=== PATIENT | male | born 1940 | race Caucasian/White ===

== ENCOUNTER 2017-01-27 10:22 | Emergency (ER) | payer BC, MEDICARE ==
[~2017-01-27 10:22] MED LIST: ALTACE10 MG PO; ASPIR 8181 MG PO; ATROVENT INH S2.5 ML INH; COREG 25MG TAB25 MG PO; HYDROCHLOROTH12.5 M1 PO; LEVAQUIN500 MG PO; MEDROL DOSEPAK 24 MG PO; PLAVIX 75 MG TA75 MG PO; PROVENTIL HFA 61 INH INH; SINGULAIR10 MG PO; TEKTURNA150 MG PO; TESSALON PERLE100 MG PO; TIROSINT100 MCG PO; VENTOLIN/PROVE0.5 ML INH; VITAMIN D50000 UNIT PO; ZOCOR 40 MG TAB40 MG PO
[2017-01-27 11:21] LABS: HEMOGLOBIN 13.5 gm/dl (14.0-17.5); RED BLOOD COUNT 4.5 M/UL (4.20-5.50); WHITE BLOOD COUNT 9.6 K/UL (4.5-11.0)
[2017-01-27 11:44] LABS: BUN/CREATININE RATIO 14 (0-10)
== END 2017-01-27 15:15 | disposition home or self-care (01) ==
LOC: ER1 10:22
PROVIDERS: Emergency Medicine
DX: J44.1 Chronic obstructive pulmonary disease with (acute) exacerbation (principal); E78.5 Hyperlipidemia, unspecified; I10 Essential (primary) hypertension; D64.9 Anemia, unspecified; I25.10 Atherosclerotic heart disease of native coronary artery without angina pectoris; Z85.038 Personal history of other malignant neoplasm of large intestine
CPT/HCPCS: 36415; 36600; 71010; 80053; 82803; 83880; 84484; 85025; 85379; 87040; 93005; 94640; 94664; 96374; 96375; 99285; J0696; J2930; J7050

== ENCOUNTER 2017-04-19 12:30 | Inpatient (IN) | payer BC, MEDICARE ==
[~2017-04-19] VITALS: Ht 175.3 cm; Wt 117.9 kg
[2017-04-19] MEDS ORDERED: MULTI-DAY VITA1 EACH PO (14:48)
[2017-04-19 14:59] LABS: HEMOGLOBIN 14.5 gm/dl (14.0-17.5); RED BLOOD COUNT 4.71 M/UL (4.20-5.50); WHITE BLOOD COUNT 12.1 K/UL (4.5-11.0)
[2017-04-19 15:13] LABS: BUN/CREATININE RATIO 14 (0-10)
[2017-04-20 04:23] LABS: HEMOGLOBIN 13.3 gm/dl (14.0-17.5); RED BLOOD COUNT 4.36 M/UL (4.20-5.50); WHITE BLOOD COUNT 9.1 K/UL (4.5-11.0)
[2017-04-20 05:01] LABS: BUN/CREATININE RATIO 16 (0-10)
[2017-04-21 07:16] LABS: HEMOGLOBIN 13.5 gm/dl (14.0-17.5); RED BLOOD COUNT 4.46 M/UL (4.20-5.50); WHITE BLOOD COUNT 9.1 K/UL (4.5-11.0)
[2017-04-21] MEDS ORDERED: LEVAQUIN500 MG PO (11:17)
[2017-04-21] MEDS ORDERED: IPRAT-ALBUT 0.5-3 ML INH (11:26)
== END 2017-04-21 09:00 | disposition home or self-care (01) | DRG 189 ==
LOC: MED SURG 4 13:47
PROVIDERS: ADMIT Internal Medicine
DX: J96.01 Acute respiratory failure with hypoxia (principal); J45.901 Unspecified asthma with (acute) exacerbation; J20.9 Acute bronchitis, unspecified; I25.10 Atherosclerotic heart disease of native coronary artery without angina pectoris; I10 Essential (primary) hypertension; J98.4 Other disorders of lung; E78.5 Hyperlipidemia, unspecified; E03.9 Hypothyroidism, unspecified; N40.0 Benign prostatic hyperplasia without lower urinary tract symptoms; E55.9 Vitamin D deficiency, unspecified; D50.9 Iron deficiency anemia, unspecified; Z85.038 Personal history of other malignant neoplasm of large intestine; Z90.49 Acquired absence of other specified parts of digestive tract; Z87.01 Personal history of pneumonia (recurrent)
CPT/HCPCS: 36415; 36600; 71010; 71020; 80048; 82803; 85025; 85027; 87070; 87205; 94640; 94660; 94664; J1956

== ENCOUNTER 2017-05-12 18:37 | Inpatient (IN) | payer BC, MEDICARE ==
[~2017-05-12] VITALS: Ht 175.3 cm; Wt 115.8 kg
[~2017-05-12 18:37] MED LIST changes: +IPRAT-ALBUT 0.5-3 ML INH; +MULTI-DAY VITA1 EACH PO
[2017-05-12 20:21] LABS: HEMOGLOBIN 14.4 gm/dl (14.0-17.5); RED BLOOD COUNT 4.74 M/UL (4.20-5.50); WHITE BLOOD COUNT 9.6 K/UL (4.5-11.0)
[2017-05-12 20:43] LABS: BUN/CREATININE RATIO 16 (0-10)
[2017-05-13] MEDS ORDERED: RAMIPRIL10 MG PO (00:58)
[2017-05-13 05:26] LABS: HEMOGLOBIN 14.9 gm/dl (14.0-17.5); RED BLOOD COUNT 4.89 M/UL (4.20-5.50); WHITE BLOOD COUNT 7.6 K/UL (4.5-11.0)
[2017-05-13 06:00] LABS: BUN/CREATININE RATIO 20 (0-10)
[2017-05-14 06:35] LABS: BUN/CREATININE RATIO 26 (0-10)
[2017-05-15 06:24] LABS: HEMOGLOBIN 13.3 gm/dl (14.0-17.5)
[2017-05-15 06:26] LABS: RED BLOOD COUNT 4.4 M/UL (4.20-5.50)
[2017-05-15 06:42] LABS: BUN/CREATININE RATIO 27 (0-10)
[2017-05-16 05:53] LABS: HEMOGLOBIN 13.4 gm/dl (14.0-17.5); RED BLOOD COUNT 4.42 M/UL (4.20-5.50); WHITE BLOOD COUNT 10.1 K/UL (4.5-11.0)
[2017-05-16 05:57] LABS: BUN/CREATININE RATIO 30 (0-10)
[2017-05-16] MEDS ORDERED: NORVASC 5 MG TAB5 MG PO (13:30)
[2017-05-16] MEDS ORDERED: VALSARTAN80 MG PO (13:32)
[2017-05-16] MEDS ORDERED: CRESTOR20 MG PO (13:33)
[2017-05-16] MEDS ORDERED: SYMBICORT 160-1 INHA INH ×2 (13:33→13:43)
[2017-05-16] MEDS ORDERED: FLONASE 0.05% N16 GM (13:38)
[2017-05-16] MEDS ORDERED: PROVENTIL HFA6.7 GM INH (13:42)
[2017-05-16] MEDS ORDERED: PREDNISONE 10 M10 MG PO (13:45)
== END 2017-05-16 14:54 | disposition home or self-care (01) | DRG 203 ==
LOC: M/S 18:51
PROVIDERS: Family Medicine; ADMIT Internal Medicine
DX: J45.991 Cough variant asthma (principal); I25.10 Atherosclerotic heart disease of native coronary artery without angina pectoris; I10 Essential (primary) hypertension; Z95.1 Presence of aortocoronary bypass graft; G47.33 Obstructive sleep apnea (adult) (pediatric); I25.2 Old myocardial infarction; Z79.82 Long term (current) use of aspirin; Z79.899 Other long term (current) drug therapy; E03.9 Hypothyroidism, unspecified; E66.01 Morbid (severe) obesity due to excess calories; E78.5 Hyperlipidemia, unspecified; Z85.038 Personal history of other malignant neoplasm of large intestine; Z90.49 Acquired absence of other specified parts of digestive tract; Z68.37 Body mass index [BMI] 37.0-37.9, adult
CPT/HCPCS: ECHO; 36415; 71010; 71250; 74230; 80048; 80053; 82785; 82962; 83880; 85025; 85027; 92611-GN; 93306; 94640; 94660; 94664; J0696; J1650; J1940; J2930

== ENCOUNTER → 2021-09-07 | Day surgery (SDC) | payer MEDICARE ==
[~2021-09-07] MED LIST changes: +CRESTOR20 MG PO; +FLONASE 0.05% N16 GM; +IRBESARTAN300 MG PO; +MONTELUKAST SOD10 MG PO; +NORVASC 5 MG TAB5 MG PO; +PREDNISONE 10 M10 MG PO; +PROVENTIL HFA6.7 GM INH; +RAMIPRIL10 MG PO; +SYMBICORT 160-1 INHA INH; +VALSARTAN80 MG PO
== END | disposition home or self-care (01) ==
LOC: OR 06:07
DX: Z12.11 Encounter for screening for malignant neoplasm of colon (principal); Z85.038 Personal history of other malignant neoplasm of large intestine; J45.30 Mild persistent asthma, uncomplicated; I25.10 Atherosclerotic heart disease of native coronary artery without angina pectoris; I10 Essential (primary) hypertension; E78.5 Hyperlipidemia, unspecified; E03.9 Hypothyroidism, unspecified; D50.9 Iron deficiency anemia, unspecified; E66.01 Morbid (severe) obesity due to excess calories; Z95.1 Presence of aortocoronary bypass graft; Z79.82 Long term (current) use of aspirin; Z20.822 Contact with and (suspected) exposure to COVID-19; I25.2 Old myocardial infarction; Z90.49 Acquired absence of other specified parts of digestive tract
CPT/HCPCS: J2704; J7120